=== PATIENT | male | born 1960 | race Caucasian/White ===

== ENCOUNTER 2019-02-03 14:33 | Emergency (ER) | payer MEDICAID, OTHER ==
[~2019-02-03] VITALS: Ht 167.6 cm; Wt 60.0 kg
[2019-02-03 14:43] VITALS: Ht 167.6 cm; Wt 60.0 kg
--- NOTE | 2019-02-03 14:50 | ERD ---
ER Documentation Chief Complaint Chief Complaint HEADACHE STARTED AFTER COMPLETING DIALYSIS HPI The patient is a 59-year-old male, presenting to the ER because of right right frontal headache after dialysis according to EMS. He had similar symptoms 5 days ago and was admitted to [facility] and had extensive workup, he was discharged 2 days ago. He denies syncope near, near syncope, seizure, neck pain, chest pain, dyspnea, abdominal pain, vomiting, dysuria, diarrhea. He does not smoke nor drink Past medical history: Chronic kidney disease on hemodialysis for the last 2 years, diabetes mellitus, hypertension Past surgical history: Left chest hemodialysis catheter, left [id number] amputation ROS All systems reviewed and are negative except as per history of present illness. Physical Exam Vitals Vital Signs Date Temp Pulse Resp B/P (MAP) Pulse Ox O2 O2 Flow FiO2 Time Delivery Rate 02/03/19 98.5 97 12 141/97 100 Room Air 17:34 (112) 02/03/19 98.5 97 12 134/108 100 Room Air 16:35 (117) 02/03/19 98.5 95 20 115/101 97 Room Air 15:12 (106) 02/03/19 98.5 96 20 129/92 97 14:43 (104) Physical Exam Const: No acute distress. Head: Atraumatic. Eyes: Normal Conjunctiva. ENT: Normal External Ears, Nose and Mouth. Neck: Full range of motion. No meningismus. Resp: Clear to auscultation bilaterally. Cardio: Regular rate and rhythm. Abd: Soft, non distended, normal bowel sounds, non tender. Skin: No petechiae or rashes. Back: No midline or flank tenderness. Ext: No cyanosis, or edema. Neur: Awake and alert. No focal deficit Psych: Very anxious Result Diagram: 02/03/19 1518 02/03/19 1518 Results 24 hrs Laboratory Tests Test 02/03/19 15:18 White Blood Count 4.3 10^3/ul Red Blood Count 3.35 10^6/ul Hemoglobin 10.5 g/dl Hematocrit 33.3 % Mean Corpuscular Volume 99.4 fl Mean Corpuscular Hemoglobin 31.3 pg Mean Corpuscular Hemoglobin Concent 31.5 g/dl Red Cell Distribution Width 16.1 % Platelet Count 213 10^3/UL Mean Platelet Volume 10.9 fl Immature Granulocytes % 0.200 % Neutrophils % 65.5 % Lymphocytes % 17.3 % Monocytes % 10.7 % Eosinophils % 4.9 % Basophils % 1.4 % Nucleated Red Blood Cells % 0.0 /100WBC Immature Granulocytes # 0.010 10^3/ul Neutrophils # 2.8 10^3/ul Lymphocytes # 0.7 10^3/ul Monocytes # 0.5 10^3/ul Eosinophils # 0.2 10^3/ul Basophils # 0.1 10^3/ul Nucleated Red Blood Cells # 0.0 10^3/ul Prothrombin Time 14.5 Sec Prothrombin Time Ratio 1.1 INR International Normalized Ratio 1.12 Activated Partial Thromboplast Time 46.8 Sec Sodium Level 139 mmol/L Potassium Level 3.7 mmol/L Chloride Level 98 mmol/L Carbon Dioxide Level 28 mmol/L Anion Gap 13 Blood Urea Nitrogen 30 mg/dl Creatinine 3.27 mg/dl Est Glomerular Filtrat Rate mL/min 19 mL/min Glucose Level 119 mg/dl Calcium Level 8.6 mg/dl Current Medications Medications Dose Sig/Ceci Start Time Status Last (Trade) Ordered Route PRN Stop Time Admin Dose Reason Admin 0.5 mg ONCE STAT 02/03/19 DC 02/03/19 Hydromorphone IV 15:06 15:14 HCl 02/03/19 15:08 (Dilaudid) Procedures/[place] [address] Radiology Main Line: [phone] DIAGNOSTIC IMAGING REPORT Patient: TREV BROWN : 1960 Age: 59 Sex: M MR #: [id number] DOS: 02/03/19 1506 Ordering MD: KIANA HOLLIS MD Location: E/R Room/Bed: PROCEDURE: CT head CLINICAL INDICATION: Headaches TECHNIQUE: Contiguous 2.5 mm axial images were obtained from the vertex to the skull base. No intravenous contrast was administered. The calculated dose length product (DLP) = 634.23 mGy-cm. The CTDlvol = 39.64 mGy. One or more of the following dose reduction techniques were used: Automated exposure control, adjustment of the mA and or KV according to patient size, or use of iterative reconstruction technique. DICOM images are available. COMPARISON: None FINDINGS: There is no acute intracranial hemorrhage or acute territorial infarct. No mass or mass effect is seen on this noncontrast study. Age appropriate cortical and central atrophy is seen. Ventricles are normal in size and configuration for the degree of atrophy. Moderate small vessel ischemic changes in the periventricular white matter. Visualized paranasal sinuses are normally aerated. Bony calvarium is unremarkable. There is advanced bilateral vertebral artery and carotid calcification. There is also extensive calcification of bilateral stomach arteries and temporal arteries. This is sometimes associated with vasculitis. IMPRESSION: 1. No acute intracranial hemorrhage or acute territorial infarct. 2. Age related atrophy and moderate small vessel ischemic change. 3. Extensive cerebral vascular calcification RPTAT: HH .Roly Bonilla MD, MD Date Time Electronically viewed and signed by .Roly Bonilla MD, MD on 02/03/2019 16:09 .W/ CC: KIANA HOLLIS MD [phone] MEDICAL MAKING DECISION: The patient is a 59-year-old male, presenting to the ER because of acute headache of unclear etiology, was treated with Dilaudid 0.5 mg IV with good response, is stable for outpatient follow-up The differential diagnoses considered include but are not limited to subarachnoid hemorrhage, occult trauma, CVA, meningitis, encephalitis, hypertension, tension, migraine, cluster, narcotic withdrawal, cervical spine disease. Departure Diagnosis: Primary Impression: Headache Additional Impressions: Anemia Leukopenia Condition: Stable Comments I discussed the findings with the patient. I advised the patient to follow-up with the primary physician in about 2-3 days, sooner if needed and return if any concern. Disclaimer: Inadvertent spelling and grammatical errors are likely due to EHR/dictation software use and do not reflect on the overall quality of patient care. Also, please note that the electronic time recorded on this note does not necessarily reflect the actual time of the patient encounter. KIANA HOLLIS MD Feb 03, 2019 14:50
[2019-02-03] MEDS ORDERED: HYDROmorphONE 0.5 MG/0.5 ML SYG IV STA (15:06)
[2019-02-03 20:05] VITALS: BP 133/102; PULSE 90; RESP 12
== END 2019-02-03 20:10 | disposition home or self-care (01) ==
LOC: E/R 14:33
DX: R51 Headache (principal); D64.9 Anemia, unspecified; D72.819 Decreased white blood cell count, unspecified
CPT/HCPCS: 36415; 70450; 80048; 85025; 85610; 85730; 96374; J1170; Z7502

== ENCOUNTER 2019-04-18 15:59 | Observation (INO) | payer MEDICAID ==
[~2019-04-18] VITALS: Ht 172.7 cm; Wt 52.0 kg
[2019-04-18] MEDS: INSULIN ASPART [NOVOLOG] 3 ML PEN SC SCH ×2 (00:30→18:00)
[2019-04-18] MEDS ORDERED: KETOROLAC 15 MG INJ IV STA (16:11)
--- NOTE | 2019-04-18 16:20 | ERD ---
ER Documentation Chief Complaint Chief Complaint Severe frontal headache started suddenly x1hr into dialysis HPI The patient is a 59-year-old male, presenting to the ER because for frontal headache after dialysis according to EMS. He had completed 1 hour of hemodialysis when the headache began, and states he has had multiple similar headaches in the past usually with every single hemodialysis episode. He was seen and evaluated here 2 months ago for the same exact thing and just prior to that he was evaluated as an inpatient [facility] hospital and discharged. He denies chest pain or shortness of breath, no dizziness, no vomiting or diarrhea. Patient was transported here moaning uncontrollably. ROS All systems reviewed and are negative except as per history of present illness. Medications Home Meds Reported Medications Venlafaxine Hcl* (Venlafaxine Hcl ER*) 37.5 Mg Cap.er.24h, 37.5 MG PO DAILY, CAP 04/18/19 Tramadol Hcl* (Ultram*) 50 Mg Tablet, 50 MG PO Q12H PRN for PAIN, TAB 04/18/19 Sennosides* (Senna Lax*) 8.6 Mg Tablet, 1 TAB PO QHS, TAB 04/18/19 Sevelamer Hcl* (Renagel*) 800 Mg Tablet, 800 MG PO WITH MEALS, TAB 04/18/19 Pantoprazole* (Protonix*) 40 Mg Tablet.dr, 40 MG PO DAILY, TAB 04/18/19 Atorvastatin* (Atorvastatin*) 80 Mg Tablet, 80 MG PO QHS, #30 TAB 04/18/19 Hydralazine Hcl* (Hydralazine Hcl*) 50 Mg Tab, 50 MG PO Q8, #90 TAB 04/18/19 Gabapentin* (Gabapentin*) 300 Mg Capsule, 300 MG PO TID, #90 CAP 04/18/19 Docusate Sodium* (Colace*) 100 Mg Capsule, 100 MG PO Q24H PRN for CONSTIPATION, #30 CAP 04/18/19 Carvedilol* (Carvedilol*) 12.5 Mg Tablet, 12.5 MG PO BID, #60 TAB 04/18/19 Aspirin* (Aspirin* EC) 81 Mg Tablet.dr, 81 MG PO DAILY, TAB 04/18/19 Amlodipine Besylate* (Norvasc*) 5 Mg Tablet, 5 MG PO DAILY, TAB 04/18/19 Allergies Allergies: Coded Allergies: No Known Allergy (Unverified , 04/18/19) PMhx/Soc Chronic kidney disease on hemodialysis for the last 2 years, diabetes mellitus, hypertension, chronic recurrent headaches, left above-knee amputation, opioid dependence History of Surgery: Yes (LT AV fistula, Lt chest estela cath, LT BKA, RT 1st toe amputation ) Anesthesia Reaction: No Hx Neurological Disorder: Yes (NEUROPATHY) Hx Respiratory Disorders: No (PNEUMONIA) Hx Cardiac Disorders: Yes (HTNK, HYPERLIPIDEMIA, CARDOMYOPATHY) Hx Psychiatric Problems: No Hx Miscellaneous Medical Probl: Yes (ESBL, MRSA, diabetic ulcers) Hx Alcohol Use: No Hx Substance Use: No Hx Tobacco Use: No Smoking Status: Unknown if ever smoked FmHx Family History: No diabetes Physical Exam Vitals Vital Signs Date Temp Pulse Resp B/P (MAP) Pulse Ox O2 O2 Flow FiO2 Time Delivery Rate 04/18/19 98.5 97 19 99/79 (86) 98 Room Air 17:26 04/18/19 98.5 103 25 132/106 100 16:06 (115) Physical Exam Const: Well-developed well-nourished man, moaning, afebrile Resp: Clear to auscultation bilaterally Cardio: Regular rate and rhythm, no murmurs Abd: Soft, non tender, non distended. No guarding, no masses, no rigidity Skin: No petechiae or rashes Ext: No cyanosis, or edema, left above-knee amputation Neur: Awake and alert x3, no focal deficits or facial asymmetry Psych: Anxious and irritable Result Diagram: 04/18/19 1617 04/18/19 1617 Results 24 hrs Laboratory Tests Test 04/18/19 16:17 White Blood Count 6.4 10^3/ul Red Blood Count 4.57 10^6/ul Hemoglobin 13.2 g/dl Hematocrit 41.8 % Mean Corpuscular Volume 91.5 fl Mean Corpuscular Hemoglobin 28.9 pg Mean Corpuscular Hemoglobin Concent 31.6 g/dl Red Cell Distribution Width 16.7 % Platelet Count 278 10^3/UL Mean Platelet Volume 11.1 fl Immature Granulocytes % 0.300 % Neutrophils % 72.3 % Lymphocytes % 15.5 % Monocytes % 9.4 % Eosinophils % 1.7 % Basophils % 0.8 % Nucleated Red Blood Cells % 0.0 /100WBC Immature Granulocytes # 0.020 10^3/ul Neutrophils # 4.6 10^3/ul Lymphocytes # 1.0 10^3/ul Monocytes # 0.6 10^3/ul Eosinophils # 0.1 10^3/ul Basophils # 0.1 10^3/ul Nucleated Red Blood Cells # 0.0 10^3/ul Sodium Level 139 mmol/L Potassium Level 4.4 mmol/L Chloride Level 97 mmol/L Carbon Dioxide Level 26 mmol/L Anion Gap 16 Blood Urea Nitrogen 30 mg/dl Creatinine 3.27 mg/dl Est Glomerular Filtrat Rate mL/min 19 mL/min Glucose Level 84 mg/dl Calcium Level 9.5 mg/dl Total Bilirubin 0.5 mg/dl Direct Bilirubin 0.00 mg/dl Indirect Bilirubin 0.5 mg/dl Aspartate Amino Transf (AST/SGOT) 51 IU/L Alanine Aminotransferase (ALT/SGPT) 37 IU/L Alkaline Phosphatase 273 IU/L Troponin I 0.080 ng/ml Total Protein 8.7 g/dl Albumin 4.3 g/dl Globulin 4.40 g/dl Albumin/Globulin Ratio 0.97 Lipase 1084 U/L Current Medications Medications Dose Sig/Ceci Start Time Status Last (Trade) Ordered Route PRN Stop Time Admin Dose Reason Admin Oxycodone/ 1 tab ONCE ONCE 04/18/19 DC 04/18/19 Acetaminophen PO 16:30 04/18/19 16:33 (Percocet 16:31 (5/ 325)) Ketorolac 15 mg ONCE STAT 04/18/19 DC 04/18/19 Tromethamine IV 16:11 04/18/19 16:34 (Toradol) 16:13 Hydralazine 20 mg ONCE ONCE 04/18/19 DC HCl IV 17:00 04/18/19 (Apresoline) 17:01 Ibuprofen 600 mg ONCE ONCE 04/18/19 DC (Motrin) PO 17:00 04/18/19 17:13 IV Flush 3 ml PER 04/18/19 (NS 3 ml) PROTOCOL IV 17:00 Ondansetron 4 mg Q6H PRN 04/18/19 HCl (Zofran IV 17:00 Inj) NAUSEA/VOMITI NG 650 mg Q6H PRN 04/18/19 Acetaminophen PO .PAIN 1-3 17:00 (Tylenol OR TEMP Tab) 1 tab Q6H PRN 04/18/19 Acetaminophen PO .PAIN 4-6 17:00 / Hydrocodone Bitart ([place] (5/325)) Morphine 2 mg Q4H PRN 04/18/19 Sulfate IV .PAIN 17:00 (morphine) 7-10 Labetalol 10 mg Q4 PRN IV 04/18/19 HCl sbp>160 17:30 (Labetalol) Amlodipine 5 mg DAILY PO 04/19/19 Besylate 09:00 (Norvasc) 80 mg QHS PO 04/18/19 Atorvastatin 21:00 Calcium (Lipitor) Carvedilol 12.5 mg BID PO 04/18/19 (Coreg) 21:00 Docusate 100 mg Q24H PRN 04/18/19 Sodium PO 17:30 (Colace) CONSTIPATION Gabapentin 300 mg TID PO 04/18/19 (Neurontin) 21:00 Hydralazine 50 mg Q8 PO 04/18/19 HCl 22:00 (Apresoline) 40 mg DAILY PO 04/19/19 Pantoprazole 09:00 (Protonix Tab) Senna 1 tab QHS PO 04/18/19 (Senokot) 21:00 Sevelamer 800 mg WITH MEALS 04/18/19 HCl PO 18:00 (Renagel) Tramadol 50 mg Q12H PRN 04/18/19 HCl PO PAIN 17:30 (Ultram) Venlafaxine 37.5 mg DAILY PO 04/19/19 HCl 09:00 (Effexor Xr) 12.5 mg ONCE ONCE 04/18/19 DC 04/18/19 Diphenhydrami IV 17:30 04/18/19 18:22 ne HCl 18:15 (Benadryl) 10 mg ONCE ONCE 04/18/19 DC Metoclopramid IV 17:30 04/18/19 e HCl 18:15 (Reglan) Discontinue ONCE ONCE 04/18/19 DC Miscellaneous current oral XX 17:30 04/18/19 sulfonylur... 18:16 Information (* Miscellaneous Pharmacy Order) Diagnostic 1 ea 02 XX 04/19/19 Test (Pha) 02:00 (Accu-Chek) ONCE ONCE 04/18/19 DC Miscellaneous HYPOGLYCEMIA XX 17:30 04/18/19 PROTOCOL 18:16 Information w... (* Miscellaneous Pharmacy Order) Insulin NOVOLOG WITH MEALS 04/18/19 Aspart *MILD* BEDTIME SC 18:00 (Novolog ALGORITHM Insulin Pen) Discontinue ONCE ONCE 04/18/19 DC Miscellaneous all previ... XX 17:30 04/18/19 18:16 Information (* Miscellaneous Pharmacy Order) Albuterol/ 3 ml Q2H RESP 04/18/19 Ipratropium THERAPY PRN 18:30 (Duoneb) HHN shortness of breath 1 ea NOTE XX 04/18/19 Miscellaneous 18:30 Information Glucose 15 gm Q15M PRN 04/18/19 (Glutose) PO DECREASED 18:30 GLUCOSE Glucose 22.5 gm Q15M PRN 04/18/19 (Glutose) PO DECREASED 18:30 GLUCOSE Dextrose 25 ml Q15M PRN 04/18/19 (D50w IV DECREASED 18:30 Syringe) GLUCOSE Dextrose 50 ml Q15M PRN 04/18/19 (D50w IV DECREASED 18:30 Syringe) GLUCOSE Glucagon 1 mg Q15M PRN 04/18/19 (Glucagen) IM DECREASED 18:30 GLUCOSE Glucose 15 gm Q15M PRN 04/18/19 (Glutose) BUCCAL 18:30 DECREASED GLUCOSE Procedures/MDM IV line was established patient was placed on diagnostic cardiac sonographer rhythm strip revealed a narrow complex tachycardia at 102 bpm with upright P and T waves. Patient was afebrile EKG performed, read by me revealed a sinus tachycardia at 102 bpm, left axis deviation, narrow QRS complex, no concerning ST elevations noted, anterolateral T wave inversions 1 view chest x-ray performed, read by me reveals cardiomegaly and pulmonary edema bilaterally. I administered Percocet 1 tablet p.o. and Toradol 15 mg IV x1 for headache Patient was hypertensive with an initial diastolic blood pressure of over 110 mmHg, I administered hydralazine 20 mg IV x1 and ibuprofen 600 mg p.o. for continued headache although I do not suspect his pain will resolve until he receives IV opioids I reviewed the CT scan of the brain which was performed about a month and a half ago and it was unremarkable, furthermore it seems he had an extensive inpatient work-up at [facility] about 2 months ago which was negative for any acute neurologic issue that would account for his headaches. CBC was unremarkable, electrolytes revealed end-stage kidney disease, liver function tests were normal, lipase elevated just over thousand, troponin negative Patient will be admitted to telemetry for continued hemodialysis and pulmonary edema. I suspect patient has opioid dependence and requires opioids almost on a daily basis Departure Diagnosis: Primary Impression: Headache Headache type: tension-type Headache chronicity pattern: acute headache Intractability: not intractable Qualified Codes: G44.209 - Tension-type headache, unspecified, not intractable Additional Impressions: End stage kidney disease Acute pulmonary edema Hypertensive emergency Opioid dependence Substance use status: with unspecified opioid-induced disorder Qualified Codes: F11.29 - Opioid dependence with unspecified opioid-induced disorder Elevated lipase Condition: YENNY Rachel MD Apr 18, 2019 16:20
[2019-04-18] MEDS ORDERED: CARV12.579 PO (16:26)
[2019-04-18] MEDS ORDERED: AMLO5TAB4 PO (16:26)
[2019-04-18] MEDS ORDERED: ASPI-817 PO (16:26)
[2019-04-18] MEDS ORDERED: DOCU-144 PO (16:27)
[2019-04-18] MEDS ORDERED: GABA300C16 PO (16:27)
[2019-04-18] MEDS ORDERED: HYDR-3672 PO (16:27)
[2019-04-18] MEDS ORDERED: ATOR-2 PO (16:28)
[2019-04-18] MEDS ORDERED: PANT40TA3 PO (16:28)
[2019-04-18] MEDS ORDERED: SVL800C PO (16:28)
[2019-04-18] MEDS ORDERED: TRAM50TA PO (16:29)
[2019-04-18] MEDS ORDERED: SENN-120 PO (16:29)
[2019-04-18] MEDS ORDERED: OXYCODONE/ACETAMINOPHEN (5/325) TAB PO ONE (16:30)
[2019-04-18] MEDS ORDERED: VENL-42 PO (16:30)
[2019-04-18] MEDS ORDERED: ACETAMINOPHEN 325 MG TAB PO PRN (17:00)
[2019-04-18] MEDS ORDERED: ONDANSETRON 4 MG INJ IV PRN (17:00)
[2019-04-18] MEDS ORDERED: HYDROCODONE/APAP (5/325) TAB PO PRN (17:00)
[2019-04-18] MEDS ORDERED: IBUPROFEN 600 MG TAB PO ONE (17:00)
[2019-04-18] MEDS ORDERED: NACL 0.9% 3 ML SYG IV SCH (17:00)
[2019-04-18] MEDS ORDERED: morphine 2 MG INJ IV PRN (17:00)
[2019-04-18] MEDS ORDERED: hydrALAzine 20 MG INJ IV ONE (17:00)
[2019-04-18] MEDS ORDERED: traMADol 50 MG TAB PO PRN (17:30)
[2019-04-18] MEDS ORDERED: METOCLOPRAMIDE 10 MG INJ IV ONE (17:30)
[2019-04-18] MEDS ORDERED: DIPHENHYDRAMINE 50 MG INJ IV ONE (17:30)
[2019-04-18] MEDS ORDERED: DOCUSATE SODIUM 100 MG CAP PO PRN (17:30)
[2019-04-18] MEDS ORDERED: LABETALOL HCL 20MG INJ IV PRN (17:30)
--- NOTE | 2019-04-18 17:47 | HP ---
Date/Time of Note Date/Time of Note DATE: 04/18/19 TIME: 17:47 Assessment/Plan VTE Prophylaxis Pharmacological prophylaxis: other Lines/Catheters IV Catheter Type (from Nrs): Mid Line Assessment/Plan Hospital Course Patient is a male with a past medical history significant for hypertension, dyslipidemia, end-stage renal disease on hemodialysis, who presents with acute on chronic headache. Patient was at his normal scheduled dialysis when he experienced sudden onset frontal headache. Patient states that he has had this before and according to ER physician he has had full work-up at all of [facility] and he also presented like this approximately 2 months prior. Patient currently is hysterical and crying and stating that no one is helping him and is otherwise not cooperating with the exam, patient states that this is due to his severe headache. Further reviews of systems may be inaccurate due to patient's current headache however patient denies any other acute issues. Full review of systems cannot be done due to patient's hysterical crying. Surgical history, unable to obtain Objective Physical exam General: Patient is laying in bed and answers questions appropriately Mentation: Patient is alert and oriented 4, Head: Normocephalic atraumatic Eyes: EOMI, pupils reactive to light Neck: Supple, nontender, midline Respiratory: Clear to auscultation bilaterally Cardiovascular: regular rate, no obvious murmurs Gastrointestinal: non-tender to palpation, bowel sounds heard. Neurological: Moves all extremities spontaneously Skin: Numerous healed over scabs all over patient's body Musculoskeletal: Leg amputation Assessment and plan Severe headache -It appears to be extremely severe in nature, will need to get stat CT brain to rule out brain bleed although this is less likely due to no altered mental status or other physical abnormality also the fact that this is happened before and presented a similar fashion also makes it less likely -We will treat with acute pain medication as well as headache medication as needed -If this persists we will get MRI and neurology work-up -Did not start aspirin until brain bleed is ruled out End-stage renal disease on hemodialysis -Nephrology has been consulted -Patient only able to do 1 hour of dialysis today will need dialysis soon Hypertension -Continue home meds, treat as needed blood pressure Dyslipidemia -Continue home meds Lipase elevation -Lipase is elevated, unknown etiology -However patient is completely asymptomatic with absolutely no epigastric pain, will monitor for now Diabetes mellitus -Insulin was not noted on patient's med reconciliation however patient states that he takes insulin, unable to tell me exactly what he takes due to his severe headache at this time, will use sliding scale for now and titrate up as needed Mood disorder -Continue home medications GERD -Continue Protonix Disposition -Awaiting CT of the brain to rule out brain bleed, Result Diagram: 04/18/19 1617 Results 24hrs Laboratory Tests Test 04/18/19 16:17 White Blood Count 6.4 # Red Blood Count 4.57 #L Hemoglobin 13.2 #L Hematocrit 41.8 #L Mean Corpuscular Volume 91.5 Mean Corpuscular Hemoglobin 28.9 L Mean Corpuscular Hemoglobin Concent 31.6 L Red Cell Distribution Width 16.7 H Platelet Count 278 # Mean Platelet Volume 11.1 H Immature Granulocytes % 0.300 Neutrophils % 72.3 Lymphocytes % 15.5 Monocytes % 9.4 Eosinophils % 1.7 Basophils % 0.8 Nucleated Red Blood Cells % 0.0 Immature Granulocytes # 0.020 Neutrophils # 4.6 Lymphocytes # 1.0 Monocytes # 0.6 Eosinophils # 0.1 Basophils # 0.1 Nucleated Red Blood Cells # 0.0 Sodium Level 139 Potassium Level 4.4 Chloride Level 97 Carbon Dioxide Level 26 Anion Gap 16 H Blood Urea Nitrogen 30 H Creatinine 3.27 H Est Glomerular Filtrat Rate mL/min 19 L Glucose Level 84 Calcium Level 9.5 Total Bilirubin 0.5 Direct Bilirubin 0.00 Indirect Bilirubin 0.5 Aspartate Amino Transf (AST/SGOT) 51 H Alanine Aminotransferase (ALT/SGPT) 37 Alkaline Phosphatase 273 H Troponin I 0.080 Total Protein 8.7 H Albumin 4.3 Globulin 4.40 H Albumin/Globulin Ratio 0.97 Lipase 1084 H HPI/ROS Admit Date/Time Admit Date/Time PMH/Family/Social Past Medical History Medications Current Medications IV Flush (NS 3 ml) 3 ml PER PROTOCOL IV ; Start 04/18/19 at 17:00 Ondansetron HCl (Zofran Inj) 4 mg Q6H PRN IV NAUSEA/VOMITING; Start 04/18/19 at 17:00; Status UNV Acetaminophen (Tylenol Tab) 650 mg Q6H PRN PO .PAIN 1-3 OR TEMP; Start 04/18/19 at 17:00; Status UNV Acetaminophen/ Hydrocodone Bitart ([place] (5/325)) 1 tab Q6H PRN PO .PAIN 4-6; Start 04/18/19 at 17:00; Status UNV Morphine Sulfate (morphine) 2 mg Q4H PRN IV .PAIN 7-10; Start 04/18/19 at 17:00; Status UNV Labetalol HCl (Labetalol) 10 mg Q4 PRN IV sbp>160; Start 04/18/19 at 17:30; Status UNV Amlodipine Besylate (Norvasc) 5 mg DAILY PO ; Start 04/19/19 at 09:00; Status UNV Atorvastatin Calcium (Lipitor) 80 mg QHS PO ; Start 04/18/19 at 21:00; Status UNV Carvedilol (Coreg) 12.5 mg BID PO ; Start 04/18/19 at 21:00; Status UNV Docusate Sodium (Colace) 100 mg Q24H PRN PO CONSTIPATION; Start 04/18/19 at 17: 30; Status UNV Gabapentin (Neurontin) 300 mg TID PO ; Start 04/18/19 at 21:00; Status UNV Hydralazine HCl (Apresoline) 50 mg Q8 PO ; Start 04/18/19 at 22:00; Status UNV Pantoprazole (Protonix Tab) 40 mg DAILY PO ; Start 04/19/19 at 09:00; Status UNV Senna (Senokot) 1 tab QHS PO ; Start 04/18/19 at 21:00; Status UNV Sevelamer HCl (Renagel) 800 mg WITH MEALS PO ; Start 04/18/19 at 18:00; Status UNV Tramadol HCl (Ultram) 50 mg Q12H PRN PO PAIN; Start 04/18/19 at 17:30; Status UNV Venlafaxine HCl (Effexor Xr) 37.5 mg DAILY PO ; Start 04/19/19 at 09:00; Status UNV Coded Allergies: No Known Allergy (Unverified , 04/18/19) Social History Smoking Status: Unknown if ever smoked Exam/Review of Systems Vital Signs Vitals Vital Signs Date Temp Pulse Resp B/P (MAP) Pulse Ox O2 O2 Flow FiO2 Time Delivery Rate 04/18/19 98.5 103 25 132/106 100 16:06 (115) YENNY GARCÍA Apr 18, 2019 17:47
[2019-04-18] MEDS ORDERED: DEXTROSE 50% 50 ML SYRINGE IV PRN ×2 (18:30)
[2019-04-18] MEDS ORDERED: GLUCOSE GEL 15 GRAM TUBE BUCCAL PRN (18:30)
[2019-04-18] MEDS ORDERED: GLUCOSE GEL 15 GRAM TUBE PO PRN ×2 (18:30)
[2019-04-18] MEDS ORDERED: ALBUTEROL/IPRATROPIUM (NEB) 3 ML AMP HHN PRN (18:30)
[2019-04-18] MEDS ORDERED: GLUCAGON 1 MG INJ IM PRN (18:30)
[2019-04-18 20:00] VITALS: PULSE 67
[2019-04-18] MEDS: SENNA TAB PO SCH ×2 (21:00→21:25)
[2019-04-18] MEDS ORDERED: ATORVASTATIN 80 MG TAB PO SCH (21:00)
[2019-04-18] MEDS: GABAPENTIN 300 MG CAP PO SCH (21:24)
[2019-04-19] VITALS (18 sets, daily range): BP systolic 71–124; BP diastolic 58–81; PULSE 66–86; RESP 17–20; Ht 172.7 cm; Wt 52.0 kg
[2019-04-19] MEDS ORDERED: ACCU-CHEK XX SCH (02:00)
[2019-04-19] MEDS: SEVELAMER 800 MG TAB PO SCH ×2 (07:55)
[2019-04-19] MEDS: INSULIN ASPART [NOVOLOG] 3 ML PEN SC SCH ×2 (07:55→12:30)
[2019-04-19] MEDS: GABAPENTIN 300 MG CAP PO SCH ×2 (08:44→13:04)
[2019-04-19] MEDS ORDERED: PANTOPRAZOLE (EC) 40 MG TAB PO SCH (09:00)
[2019-04-19] MEDS ORDERED: VENLAFAXINE (XR) 37.5 MG CAP PO SCH (09:00)
[2019-04-19] MEDS ORDERED: AMLODIPINE 5 MG TAB PO SCH (09:00)
--- NOTE | 2019-04-19 09:22 | CONS ---
DATE OF ADMISSION: 04/18/2019 DATE OF CONSULTATION: 04/19/2019 NEPHROLOGY CONSULTATION REASON FOR CONSULTATION: End-stage renal disease. PHYSICIAN REQUESTING CONSULTATION: Dr. Yenny Arzate. HISTORY OF PRESENT ILLNESS: This is a 59-year-old male with a past medical history of end-stage cachorro l disease on dialysis Sunday, Sunday, Sunday; history of hypertension, diabetes who presents to [facility] emergency room with headaches. The patient states that he had sudden head aches after only one hour of hemodialysis. As a result, had dialysis discontinued. The patient was brought into the emergency room. Upon arrival, patient had a CT scan of the brain which showed no ac [place] findings. There were no reports of hemoptysis, hematemesis or hematochezia. The patient was sub sequently admitted to telemetry for evaluation and pain management. The patient is currently on hemodialysis access Perm-A-Cath. The patient denies any shortness of ilya ath or hemoptysis. PAST MEDICAL HISTORY: History of end-stage renal disease, history of anemia, history of hypertension , history of migraine headaches, history of neuropathy, history of diabetes. PAST SURGICAL HISTORY: Status post Perm-A-Cath placement, status post left AV fistula, status post l eft BKA, history of right first toe amputation. FAMILY HISTORY: No family history of kidney disease. SOCIAL HISTORY: Does not drink, smoke or do drugs. MEDICATIONS: The patient's medications have been reviewed. REVIEW OF SYSTEMS: A 14-point review of systems conducted. Pertinent positives stated in HPI, other connor negative. PHYSICAL EXAMINATION: VITAL SIGNS: Blood pressure is 105/66, respirations 17, pulse 76, temperature 98.0. HEENT: Head is normocephalic. NECK: Supple. HEART: Regular rate. LUNGS: Show diminished breath sounds at the base. ABDOMEN: Soft, nontender to palpation without rebound or guarding. EXTREMITIES: Negative for clubbing, cyanosis. Positive BKA. DERMATOLOGIC: No rashes. MUSCULOSKELETAL: No joint effusion. NEUROLOGIC: No change in exam. LABORATORY DATA: Reviewed. IMAGING STUDIES: Reviewed. ASSESSMENT AND PLAN: This is a 59-year-old male with: 1. End-stage renal disease. The patient is on dialysis Sunday, Sunday, Sunday. Plan for dialysi s today. Will dialyze 3 hours, 2k bath, calcium 2.5. 2. Anemia. Monitor hemoglobin and hematocrit levels. Will give Epogen as needed. 3. Mineral bone disorder. Monitor calcium and phosphorus levels. Will give phos binders as needed. 4. Hypertension. Continue current blood pressure regimen. 5. Volume overload. Continue ultrafiltration dialysis. 6. Right pleural effusion. Etiology is unclear, possibly due to volume overload, end-stage renal di sease, peripneumonic. Consider a pleuracentesis. 7. Severe headaches. Etiology may be secondary to migraines. CT scan is negative. Continue to mon itor. Consider MRI. 8. Dyslipidemia. Continue statin therapy. 9. Hyperlipasemia. Etiology is likely due to underlying end-stage renal disease. The patient is cl inically asymptomatic. Continue to monitor. 10. Diabetes. Continue current insulin regimen. Thank you, Dr. Arzate, for this interesting consult. It will be a pleasure to follow the patient with katie stacy throughout the hospital course. Dictated By: LULY SORIANO DO NR/NTS Conf#: [id number] DID#: [id number] CC: YENNY ARZATE MD;*EndCC*
[2019-04-19] MEDS ORDERED: HEPARIN 1000 UNITS/ML 10 ML INJ CATHETER SCH (10:30)
--- NOTE | 2019-04-19 10:45 | PDOCDIS ---
Discharge Instructions CONDITION [id number] Patient Condition: [id number] Stable FOLLOW UP/APPOINTMENTS Follow-up Plan Please follow-up with your primary care provider as soon as possible as well as your assistant professor sculpture. YENNY GARCÍA Apr 19, 2019 10:45
--- NOTE | 2019-04-19 10:48 | DS ---
Date/Time of Note Date/Time of Note DATE: 04/19/19 TIME: 10:47 Discharge Summary Admission/Discharge Info Admit Date/Time Apr 18, 2019 at 16:57 Discharge Date/Time Patient Condition: Stable Hospital Course Patient is a male with a past medical history significant for end-stage renal disease on hemodialysis, hypertension, dyslipidemia, diabetes mellitus, we disorder, GERD who presented to [facility] after intractable migraine headache at his dialysis center. Currently patient has no acute issues and headache is minimal to none. Patient states that this headache occurs about once every 6 weeks and he had full work-up done at [facility] with no particular etiology for his headaches. Patient received MRI at the other facility and received CT scan here showing no acute intracranial issues. Patient will continue to follow-up with his primary care provider and body technician for continued work-up. Patient is to continue all home medications Discharge diagnosis Severe headache, resolved End-stage renal disease on hemodialysis Here with hypertension Dyslipidemia Elevated lipase, asymptomatic Mood disorder GERD Home Meds Reported Medications Venlafaxine Hcl* (Venlafaxine Hcl ER*) 37.5 Mg Cap.er.24h, 37.5 MG PO DAILY, CAP 04/18/19 Tramadol Hcl* (Ultram*) 50 Mg Tablet, 50 MG PO Q12H PRN for PAIN, TAB 04/18/19 Sennosides* (Senna Lax*) 8.6 Mg Tablet, 1 TAB PO QHS, TAB 04/18/19 Sevelamer Hcl* (Renagel*) 800 Mg Tablet, 800 MG PO WITH MEALS, TAB 04/18/19 Pantoprazole* (Protonix*) 40 Mg Tablet.dr, 40 MG PO DAILY, TAB 04/18/19 Atorvastatin* (Atorvastatin*) 80 Mg Tablet, 80 MG PO QHS, #30 TAB 04/18/19 Hydralazine Hcl* (Hydralazine Hcl*) 50 Mg Tab, 50 MG PO Q8, #90 TAB 04/18/19 Gabapentin* (Gabapentin*) 300 Mg Capsule, 300 MG PO TID, #90 CAP 04/18/19 Docusate Sodium* (Colace*) 100 Mg Capsule, 100 MG PO Q24H PRN for CONSTIPATION, #30 CAP 04/18/19 Carvedilol* (Carvedilol*) 12.5 Mg Tablet, 12.5 MG PO BID, #60 TAB 04/18/19 Aspirin* (Aspirin* EC) 81 Mg Tablet.dr, 81 MG PO DAILY, TAB 04/18/19 Amlodipine Besylate* (Norvasc*) 5 Mg Tablet, 5 MG PO DAILY, TAB 04/18/19 Follow-up Plan Please follow-up with your primary care provider as soon as possible as well as your body technician. Primary Care Provider Care Physician No Primary Time spent on discharge: > 30 minutes Pending Labs Laboratory Tests Test 04/18/19 16:17 04/18/19 21:07 04/19/19 00:20 04/19/19 08:22 White Blood 6.4 3.8 Count 10^3/ul (4.8-10 10^3/ul (4.8-1 .8) 0.8) Red Blood 4.57 3.40 Count 10^6/ul (4.70-6 10^6/ul (4.70- .10) 6.10) Hemoglobin 13.2 10.0 g/dl (14.0-18.0 g/dl (14.0-18. ) 0) Hematocrit 41.8 31.9 % (42.0-52.0) % (42.0-52.0) Mean 91.5 93.8 Corpuscular fl (82.0-101.0) fl (82.0-101.0 Volume ) Mean 28.9 29.4 Corpuscular pg (29.0-33.0) pg (29.0-33.0) Hemoglobin Mean 31.6 31.3 Corpuscular g/dl (32.0-37.0 g/dl (32.0-37. Hemoglobin Conc ) 0) ent Red Cell 16.7 16.5 Distribution % (11.5-14.5) % (11.5-14.5) Width Platelet Count 278 219 10^3/UL (140-41 10^3/UL (140-4 5) 15) Mean Platelet 11.1 10.9 Volume fl (7.4-10.4) fl (7.4-10.4) Immature 0.300 0.300 Granulocytes % % (0.001-0.429) % (0.001-0.429 ) Neutrophils % 72.3 64.8 % (39.0-77.0) % (39.0-77.0) Lymphocytes % 15.5 20.5 % (15.0-51.0) % (15.0-51.0) Monocytes % 9.4 9.6 % (0.0-11.0) % (0.0-11.0) Eosinophils % 1.7 % (0.0-7.0) 3.5 % (0.0-7.0) Basophils % 0.8 % (0.0-2.0) 1.3 % (0.0-2.0) Nucleated Red 0.0 0.0 Blood Cells % /100WBC (0.0-0. /100WBC (0.0-0 0) .0) Immature 0.020 0.010 Granulocytes # 10^3/ul (0.0-0. 10^3/ul (0.0-0 031) .031) Neutrophils # 4.6 2.4 10^3/ul (1.6-7. 10^3/ul (1.6-7 5) .5) Lymphocytes # 1.0 0.8 10^3/ul (0.8-2. 10^3/ul (0.8-2 9) .9) Monocytes # 0.6 0.4 10^3/ul (0.3-0. 10^3/ul (0.3-0 9) .9) Eosinophils # 0.1 0.1 10^3/ul (0.0-0. 10^3/ul (0.0-0 5) .5) Basophils # 0.1 0.1 10^3/ul (0.0-0. 10^3/ul (0.0-0 1) .1) Nucleated Red 0.0 0.0 Blood Cells # 10^3/ul (0.0-0. 10^3/ul (0.0-0 0) .0) Sodium Level 139 136 mmol/L (135-144 mmol/L (135-14 ) 4) Potassium 4.4 5.3 Level mmol/L (3.5-5.1 mmol/L (3.5-5. ) 1) Chloride Level 97 100 mmol/L (97-110) mmol/L (97-110 ) Carbon Dioxide 26 27 Level mmol/L (21-31) mmol/L (21-31) Anion Gap 16 (5-13) 9 (5-13) Blood Urea 30 mg/dl (7-20) 39 Nitrogen mg/dl (7-20) Creatinine 3.27 3.82 mg/dl (0.61-1.2 mg/dl (0.61-1. 4) 24) Est Glomerular 19 mL/min (>60) 16 Filtrat mL/min (>60) Rate mL/min Glucose Level 84 161 mg/dl (70-220) mg/dl (70-220) Calcium Level 9.5 7.8 mg/dl (8.4-10.2 mg/dl (8.4-10. ) 2) Total 0.5 0.4 Bilirubin mg/dl (0.2-1.3) mg/dl (0.2-1.3 ) Direct 0.00 0.00 Bilirubin mg/dl (0.00-0.2 mg/dl (0.00-0. 0) 20) Indirect 0.5 0.4 Bilirubin mg/dl (0-1.1) mg/dl (0-1.1) Aspartate Amino 51 IU/L (15-46) 29 Transf (AST/SGO IU/L (15-46) T) Alanine 37 IU/L (13-69) 27 Aminotransferas IU/L (13-69) e (ALT/SGPT) Alkaline 273 157 Phosphatase IU/L (42-121) IU/L (42-121) Troponin I 0.080 ng/ml (0.000-0. 120) Total Protein 8.7 6.0 g/dl (6.1-8.1) g/dl (6.1-8.1) Albumin 4.3 2.7 g/dl (3.3-4.9) g/dl (3.3-4.9) Globulin 4.40 3.30 g/dl (1.3-3.2) g/dl (1.3-3.2) Albumin/Globuli 0.97 0.81 n Ratio Lipase 1084 1006 U/L (23-300) U/L (23-300) Bedside 107 105 Glucose mg/dL (70-220) mg/dL (70-220) Magnesium 1.7 Level mg/dl (1.7-2.5 ) Hepatitis B NEGATIVE (NEGA Surface TIVE) Antigen Test 04/19/19 08:35 Bedside 131 Glucose mg/dL (70-220) YENNY GARCÍA Apr 19, 2019 10:47
[2019-04-19] MEDS ORDERED: ASPIRIN 81 MG TAB PO ONE (11:30)
[2019-04-19] MEDS ORDERED: SEVELAMER CARBONATE 800 MG TABLET PO SCH (12:10)
== END 2019-04-19 14:00 ==
LOC: E/R 15:59 → SUATTDRO 16:56 → TEL 16:57
PROVIDERS: ADMIT Internal Medicine; ATTEND Internal Medicine
DX: R51 Headache (principal); I12.0 Hypertensive chronic kidney disease with stage 5 chronic kidney disease or end stage renal disease; E11.22 Type 2 diabetes mellitus with diabetic chronic kidney disease; N18.6 End stage renal disease; Z99.2 Dependence on renal dialysis; E78.5 Hyperlipidemia, unspecified; F39 Unspecified mood [affective] disorder; K21.9 Gastro-esophageal reflux disease without esophagitis; R74.8 Abnormal levels of other serum enzymes; D64.9 Anemia, unspecified; M89.8X9 Other specified disorders of bone, unspecified site; J90 Pleural effusion, not elsewhere classified
CPT/HCPCS: 36415; 70450; 71045; 80053; 82962; 83036; 83690; 83735; 84484; 85025; 87081; 87340; 90935; 93005; 96374; J1200; J1644; J1815; J1885; J2270; Z7500; Z7502; Z7610; 99217; G0378; J0360